=== PATIENT | female | born 1985 | race African-American/Black ===

== ENCOUNTER 2017-12-25 18:14 | Emergency (ER) | payer MEDICAID ==
[~2017-12-25] VITALS: Ht 162.6 cm; Wt 59.0 kg
[2017-12-25 18:30] VITALS: BP 130/87
== END 2017-12-25 21:48 | disposition left against medical advice (07) ==
LOC: ER 18:55
DX: J02.9 Acute pharyngitis, unspecified (principal)
CPT/HCPCS: 87070; 87077; 87430; 99284